=== PATIENT | female | born 1940 | race Caucasian/White ===

== ENCOUNTER → 2018-10-21 | Outpatient (REF) | payer MEDICARE ==
[~2018-10-21] MED LIST: ADVAIR DISKU IN; CEPHALEXIN500 MG PO; ECOTRIN325 MG OR; ENOXAPARIN40 MG/0.1 SC; HYDROCHLOROTHIA50 MG PO; HYDROCODONE/ACE1 TA7 PO; LANTANOPROST OU; LORAZEPAM0.5 MG PO; LUMIGAN0.01 % OP; METOPROLOL TART50 MG OR; MILK OF MAG30 ML/UDC PO; NITROGLYCER0.4 M1 SL; POTASSIUM CHLOR8 MEQ PO; PROVENTIL HFA INH; SOMA350 MG PO; STOOL SOFTENER100 MG PO; TIMOLOL MALEAT OU; TRAMADOL HCL50 MG PO; TRUSOPT 2% OP
[2018-10-21 09:54] LABS: INTERNATIONAL NORMALIZED RATIO 3.1 RATIO (0.7-1.3); PROTHROMBIN TIME 32.6 SECONDS (9.0-12.5)
== END | disposition home or self-care (01) ==
LOC: LAB 08:32
PROVIDERS: ATTEND Internal Medicine Cardiovascular Disease
DX: I48.0 Paroxysmal atrial fibrillation (principal)

== ENCOUNTER → 2018-11-04 | Outpatient (REF) | payer MEDICARE ==
[2018-11-04 10:52] LABS: INTERNATIONAL NORMALIZED RATIO 2.1 RATIO (0.7-1.3); PROTHROMBIN TIME 22.1 SECONDS (9.0-12.5)
== END | disposition home or self-care (01) ==
LOC: LAB 09:10
PROVIDERS: ATTEND Internal Medicine Cardiovascular Disease
DX: I48.0 Paroxysmal atrial fibrillation (principal)

== ENCOUNTER 2022-03-04 16:07 | Observation (INO) | payer MEDICARE ==
[~2022-03-04] VITALS: Ht 154.9 cm; Wt 94.0 kg
[2022-03-04] VITALS (13 sets, daily range): BP systolic 151–216; BP diastolic 44–74
--- NOTE | 2022-03-04 16:09 | NUR ---
PT TO ROOM VIA WC
[2022-03-04] MEDS ORDERED: SPIRONO/HCTZ PO (16:34)
[2022-03-04] MEDS ORDERED: LYVISPAH10 MG PO (16:35)
[2022-03-04] MEDS ORDERED: WARFARIN SODIU2.5 M1 PO (16:35)
[2022-03-04] MEDS ORDERED: GABAPENTIN300 M2 PO (16:36)
[2022-03-04] MEDS ORDERED: ACID CONTROL MA20 MG PO (16:36)
[2022-03-04] MEDS ORDERED: ZETIA10 MG PO (16:37)
[2022-03-04] MEDS ORDERED: DIGOX250 MCG PO (16:38)
[2022-03-04] MEDS ORDERED: LASIX20 MG PO (16:38)
[2022-03-04 17:12] LABS: HEMATOCRIT 38.1 % (37.0-47.0); IMMATURE GRANULOCYTES 0.3 % (0.0-5.0); MEAN CORPUSCULAR HGB CONC 31.5 g/dL CAL (32.0-36.0); NEUT# 6.94 thou/uL (2.00-7.15); RED BLOOD COUNT 4.28 mill/uL (4.20-5.60); RED CELL DISTRI WIDTH 15.8 % (11.5-15.5)
[2022-03-04 17:31] LABS: ALBUMIN 3.7 g/dL (3.2-5.0); ALKALINE PHOSPHATASE 72 u/l (38-126); ANION GAP 9 (6-22 (CALC)); BILIRUBIN, TOTAL 0.6 mg/dL (0.0-1.4); BUN 15 mg/dL (8-23); BUN/CREATININE RATIO 20 (12-20 (CALC)); CARBON DIOXIDE 30 mmol/l (22-30); CHLORIDE 100 mmol/l (95-108); CREATININE 0.7 mg/dL (0.5-1.0); GFR FOR AFR.AMER. > 60 ML/MIN (>=60 (CALC)); GFR OTHER RACES > 60 ML/MIN (>=60 (CALC)); POTASSIUM 3.9 mmol/l (3.5-5.1); SGOT/AST 29 u/l (9-36); SODIUM 136 mmol/l (137-146); TOTAL PROTEIN 6.4 g/dL (6.3-8.2)
[2022-03-04 17:42] LABS: URINE BILIRUBIN - DIPSTICK NEGATIVE (NEGATIVE); URINE BLOOD DIPSTICK NEGATIVE (NEGATIVE); URINE COLOR YELLOW; URINE GLUCOSE - DIPSTICK NEGATIVE (NEGATIVE); URINE KETONE NEGATIVE (NEGATIVE); URINE LEUK ESTERASE NEGATIVE (NEGATIVE); URINE PROTEIN - DIPSTICK NEGATIVE (NEG-TRACE); URINE SPECIFIC GRAVITY 1.015; URINE UROBILINOGEN - DIPSTICK 0.2 E.U./dL (0.2)
[2022-03-04 17:43] LABS: URINE NITRITE - DIPSTICK NEGATIVE (Negative)
[2022-03-04 17:46] LABS: MYOGLOBIN 113 ng/mL (0 - 62)
[2022-03-04 18:38] LABS: DIGOXIN 1.2 ng/mL (0.8-2.0)
--- NOTE | 2022-03-04 19:00 | NUR ---
ASSUMED CARE OF PT. Reassessment of patient completed. No distress noted. FAMILY AT BS.
--- NOTE | 2022-03-04 19:10 | NUR ---
RPT GIVEN TO EMA FLORES, PT CARE RELINQUISHED AT THIS TIME
--- NOTE | 2022-03-04 20:00 | NUR ---
Reassessment of patient completed. No distress noted. FAMILY AT BS.
[2022-03-04 20:17] LABS: INTERNATIONAL NORMALIZED RATIO 3.5 RATIO (0.7-1.3)
--- NOTE | 2022-03-04 20:30 | NUR ---
PT TOOK 1900 MEDS
--- NOTE | 2022-03-04 20:40 | NUR ---
PT TOOK HOME PM MEDS WITH MD AUTHORIZATION. MEDS ON EMAR FOR 2100 NOT GIVEN.
--- NOTE | 2022-03-04 21:16 | NUR ---
ATTEMPTED TO CALL M//S WITH REPORT.
--- NOTE | 2022-03-04 22:00 | NUR ---
PT TRANSFERRED TO MED SURG. REPORT GIVEN TO GI
--- NOTE | 2022-03-04 23:00 | NUR ---
PATIENT ADMITTED FROM ER VIA STRETCHER WITH ER STAFF IN ATTENDANCE. PATIENT IS MAX ASSIST FROM STRETCHER TO THE BED. AMBULATE WITH WALKER AT HOME. PATIENT ADMITTED WITH CHF. PATIENT WITH LIMITED MOBILITY DUE TO CHRONIC PAIN AND FIBRAMYALGIA. MULTIPLE BACK SURGERIES. ALERT AND ORIENTEDX3. PATIENT BROUGHT TO THE ER BY FAMILY AND HAS ALREADY TAKEN HER HS MEDS. BLE SWELLING AND REDNESS NOTED. ELEVATED ON PILLOWS. TELE MONITOR IN PLACE[address] [facility] [address]. PUREWICK IN PLACE DRAINING PALE YELLOW URINE FOR ACCURATE I&O AND ALSO PATIENT WITH URINARY INCONT. LAST BM WAS THIS MORNING. SALINE LOCK TO RIGHT FOREARM INTACT. PATIENT STATES THAT SHE HAS FREQUENT FALLS AT HOME. LIVES WITH HER . PATIENT ORIENTED TO ROOM AND SURROUNDINGS. INSTRUCTED ON U SE OF NURSE CALL LIGHT SYSTEM AND TV REMOTE. SAFETY PRECAUTIONS REINFORCED. CALL LIGHT IN REACH. WILL CONT TO MONITOR.
[2022-03-05] VITALS (9 sets, daily range): BP systolic 135–165; BP diastolic 37–61
--- NOTE | 2022-03-05 00:44 | NUR ---
PATIENT ASSISTED OOB TO THE BSC TO VOID AND THEN ASSISTED BACK TO BED. PUREWICK APPLIED DUE TO URINE INCONT. NEW IV SITE STARTED TOP LEFT UPPER FOREARM-#22 WITH GOOD BLOOD RETURN. IVF NS PATENT AND INFUSING AT 80CC/HR. LAC SITE WAS D/C'ED WITH CATH INTACT. SAFETY PRECAUITONS REINFORCED. CALL LIGHT IN REACH. WILL CONT TO MONITOR.
--- NOTE | 2022-03-05 04:11 | NUR ---
ASSISTED PATIENT WITH REPOSITIONING IN BED. PUREWICK IN PLACE AND DRAINIONG CLEAR PALE YELLOW URINE. TELE MONITOR IN PLACE. SALINE LOCK TO LEFT FOREARM INTACT. SAFETY PRECAUTIONS REINFORCED. CALL LIGHT IN REACH. WILL CONT TO MONITOR.
[2022-03-05 04:47] LABS: HEMATOCRIT 39.5 % (37.0-47.0); HEMOGLOBIN 12.3 g/dl (12.0-16.0); MEAN CELL VOLUME 89.2 fL CALC (80.0-100.0); MEAN CORPUSCULAR HGB 27.8 pG CALC (26.0-32.0); MEAN CORPUSCULAR HGB CONC 31.1 g/dL CAL (32.0-36.0); RED BLOOD COUNT 4.43 mill/uL (4.20-5.60)
[2022-03-05 05:05] LABS: PROTHROMBIN TIME 24.5 SECONDS (9.0-12.5)
[2022-03-05 05:08] LABS: CREATININE 1.1 mg/dL (0.5-1.0); MAGNESIUM 1.9 mg/dL (1.6-2.3); POTASSIUM 3.3 mmol/l (3.5-5.1)
[2022-03-05 05:10] LABS: INTERNATIONAL NORMALIZED RATIO 2.5 RATIO (0.7-1.3)
--- NOTE | 2022-03-05 09:27 | NUR ---
AWAKE, ALERT, NO SIGNS OR SYMPTOMS OF DISTRESS NOTED OR VOICED.
--- NOTE | 2022-03-05 12:18 | NUR ---
RESTING IN CHAIR, NO SIGNS OR SYMPTOMS OF DISTRESS NOTED OR VOICED.
--- NOTE | 2022-03-05 16:04 | NUR ---
AWAKE, ALERT, UP IN CHAIR, NO SIGNS OR SYMPTOMS OF DISTRESS NOTED OR VOICED.
--- NOTE | 2022-03-05 19:25 | NUR ---
PATIENT SITTING UP IN CHAIR. NO DISTRESS NOTED. AOX3. C/O OF LEGS FEELING HOT. BLT LOWER EXTREMITY HOT TO TOUCH; RED COLORING. PATIENT STATES THIS HAS A CHRONIC PROBLEM. SKIN IS INTACT. DISCUSSED WITH PATIENT MEDICATION AVAILABLE. FALL PRECAUTIONS IN PLACE. CALL MANZO WITHIN REACH.
[2022-03-06] VITALS: BP 155/61
[2022-03-06 04:28] VITALS: BP 167/53
[2022-03-06 04:52] VITALS: BP 167/53
[2022-03-06 05:45] LABS: HEMATOCRIT 40.7 % (37.0-47.0); HEMOGLOBIN 12.9 g/dl (12.0-16.0); MEAN CELL VOLUME 88.1 fL CALC (80.0-100.0); MEAN CORPUSCULAR HGB 27.9 pG CALC (26.0-32.0); MEAN CORPUSCULAR HGB CONC 31.7 g/dL CAL (32.0-36.0); RED BLOOD COUNT 4.62 mill/uL (4.20-5.60)
[2022-03-06 06:07] LABS: ANION GAP 9 (6-22 (CALC)); BUN 19 mg/dL (8-23); BUN/CREATININE RATIO 24 (12-20 (CALC)); CARBON DIOXIDE 33 mmol/l (22-30); CHLORIDE 95 mmol/l (95-108); CREATININE 0.8 mg/dL (0.5-1.0); GFR FOR AFR.AMER. > 60 ML/MIN (>=60 (CALC)); GFR OTHER RACES > 60 ML/MIN (>=60 (CALC)); MAGNESIUM 1.7 mg/dL (1.6-2.3); POTASSIUM 3.2 mmol/l (3.5-5.1); SODIUM 134 mmol/l (137-146)
[2022-03-06 06:34] VITALS: BP 166/47
[2022-03-06 08:00] VITALS: BP 143/66
--- NOTE | 2022-03-06 08:19 | NUR ---
PT REPORT RECIEVED FROM [employer]ER [employer]ODUCTION MACHINE OPERATOR
--- NOTE | 2022-03-06 08:46 | NUR ---
PT RESTING IN LOW FOWLERS POSITION. A/OX3 ASSESSMENT AND VS COMPLETED. HEART RHYTHM NORMAL WITH TELE IN PLACE. RESPIRATIONS EVEN AND UNLABORED. BOWEL SOUNDS ACTIVE. IV NOTED TO RFA S.L FLUSHED. PT DENIES ADDITIONAL NEEDS ALL SAFETY PRECAUTIONS IN PLACE.
[2022-03-06 09:43] LABS: INTERNATIONAL NORMALIZED RATIO 1.8 RATIO (0.7-1.3); PROTHROMBIN TIME 18.2 SECONDS (9.0-12.5)
[2022-03-06 10:10] VITALS: BP 143/66
--- NOTE | 2022-03-06 11:26 | NUR ---
Pt resting in jaramillo position, she reported decrease ROM in LE and pain with some movements due to fibromyalgia and arthritis. She performed AROM to BLE in supine and sitting x 20 reps within tolerance. Rolling side to side with mod assist and bed rail use, she sleeps in recliner at home. Supine to sit with mod/max assist. Transfer to BS chair with supervision, sit to and from stand with supervision only. Gait with Rollator 2x 60' with supervision. Posture was very flexed with pt reported being PLOF for years, unable to stand stand erect because of her back. BP 143/60, HR 66 to 82, 02 sats 95-96%. Pt was wet and jluis area cleaned, brief on. Time spent with pt 55 min. A- Pt has difficulty with bed mobility but sleeps in recliner at home. No LOB noted with mobility skills. [facility] 15, HH P- Will follow per POC until D/C.
--- NOTE | 2022-03-06 11:57 | NUR ---
PT RESTING IN HIGH FOWLERS POSITION. PT WAITING TO BE DC. PT DENIES ADDITIONAL NEEDS ALL SAFETY PRECAUTIONS IN PLACE.
[2022-03-06] MEDS ORDERED: KEFLEX500 MG PO (12:20)
--- NOTE | 2022-03-06 12:49 | NUR ---
PT EDUCATED ON DC INSTRUCTIONS. PT VERBALLY STATED UNDERSTANDING. PT AWAITING FAMILY FOR TRANSPORTATION HOME. PT IV NOTED AND TELE MONITOR NOTED.
--- NOTE | 2022-03-06 14:36 | NUR ---
Discharge instructions given. Patient verbalizes understanding of same. Discharged in stable condition via Wheelchair to Home with staff. All belongings sent with pt. home health pt iv removed tele removed er informed.
== END 2022-03-06 14:36 ==
LOC: ED 16:07 → ED-I 20:05 → ED 20:54 → MS2 20:55
PROVIDERS: Emergency Medicine; ADMIT Hospitalist; ATTEND Hospitalist
DX: I11.0 Hypertensive heart disease with heart failure (principal); I50.9 Heart failure, unspecified; L03.115 Cellulitis of right lower limb; I48.91 Unspecified atrial fibrillation; I27.20 Pulmonary hypertension, unspecified; M79.7 Fibromyalgia; M62.838 Other muscle spasm; Z95.5 Presence of coronary angioplasty implant and graft; Z79.01 Long term (current) use of anticoagulants; Z95.828 Presence of other vascular implants and grafts; Z20.822 Contact with and (suspected) exposure to COVID-19

== ENCOUNTER 2022-12-26 08:51 | Emergency (ER) | payer MEDICARE ==
[~2022-12-26] VITALS: Ht 154.9 cm; Wt 77.1 kg
[~2022-12-26 08:51] MED LIST changes: +ACID CONTROL MA20 MG PO; +DIGOX250 MCG PO; +GABAPENTIN300 M2 PO; +KEFLEX500 MG PO; +LASIX20 MG PO; +LYVISPAH10 MG PO; +SPIRONO/HCTZ PO; +WARFARIN SODIU2.5 M1 PO; +ZETIA10 MG PO
[2022-12-26 11:44] VITALS: BP 167/67
== END 2022-12-26 11:45 | disposition home or self-care (01) ==
LOC: ED 08:51
DX: M16.11 Unilateral primary osteoarthritis, right hip (principal); I11.0 Hypertensive heart disease with heart failure; I50.9 Heart failure, unspecified; I27.20 Pulmonary hypertension, unspecified; I48.91 Unspecified atrial fibrillation; M79.7 Fibromyalgia; Z95.5 Presence of coronary angioplasty implant and graft

== ENCOUNTER 2023-03-23 16:39 | Emergency (ER) | payer MEDICARE ==
[~2023-03-23] VITALS: Ht 154.9 cm; Wt 74.8 kg
[2023-03-23 17:17] LABS: BASO% 0.1 % (0-3); EOS% 1.2 % (0-8); HEMATOCRIT 43.6 % (37.0-47.0); HEMOGLOBIN 13.9 g/dl (12.0-16.0); IMMATURE GRANULOCYTES 0.3 % (0.0-5.0); LYMPH% 18.6 % (15-41); MEAN CORPUSCULAR HGB 27.7 pG CALC (26.0-32.0); MEAN CORPUSCULAR HGB CONC 31.9 g/dL CAL (32.0-36.0); MONO% 9.6 % (2-13); NEUT# 9.63 thou/uL (2.00-7.15); NEUT% 70.2 % (42-76); RED BLOOD COUNT 5.01 mill/uL (4.20-5.60); RED CELL DISTRI WIDTH 13.2 % (11.5-15.5)
[2023-03-23 17:29] LABS: ALBUMIN 4.2 g/dL (3.2-5.0); ALKALINE PHOSPHATASE 75 u/l (38-126); ANION GAP 9 (6-22 (CALC)); BILIRUBIN, TOTAL 0.7 mg/dL (0.02-1.3); BUN 19 mg/dL (8-23); BUN/CREATININE RATIO 29 (12-20 (CALC)); CARBON DIOXIDE 33 mmol/l (22-30); CHLORIDE 96 mmol/l (95-108); CREATININE 0.6 mg/dL (0.5-1.0); GFR FOR AFR.AMER. > 60 ML/MIN (>=60 (CALC)); GFR OTHER RACES > 60 ML/MIN (>=60 (CALC)); POTASSIUM 3.3 mmol/l (3.5-5.1); SGOT/AST 37 u/l (9-36); SODIUM 134 mmol/l (137-146)
[2023-03-23 17:39] LABS: TOTAL PROTEIN 7.8 g/dL (6.3-8.2)
[2023-03-23 18:51] LABS: INTERNATIONAL NORMALIZED RATIO 1.8 RATIO (0.7-1.3); PROTHROMBIN TIME 17.7 SECONDS (9.0-12.5)
[2023-03-23 22:37] VITALS: BP 185/73
== END 2023-03-23 22:55 | disposition home or self-care (01) ==
LOC: ED 16:39
PROVIDERS: Family Medicine
DX: M54.2 Cervicalgia (principal); M25.512 Pain in left shoulder; I16.0 Hypertensive urgency; I11.0 Hypertensive heart disease with heart failure; I50.9 Heart failure, unspecified; I48.91 Unspecified atrial fibrillation; I27.20 Pulmonary hypertension, unspecified; M79.7 Fibromyalgia; Z95.5 Presence of coronary angioplasty implant and graft
CPT/HCPCS: Q9967

== ENCOUNTER 2024-05-21 23:16 | Emergency (ER) | payer MEDICARE ==
[~2024-05-21] VITALS: Ht 154.9 cm; Wt 85.0 kg
[2024-05-21 23:32] VITALS: BP 132/86
[2024-05-21] MEDS ORDERED: DILTIAZEM HCL 25 MG/5 ML SDV IV ONE (23:45)
[2024-05-21 23:58] VITALS: BP 149/79
[2024-05-22] VITALS (16 sets, daily range): BP systolic 97–157; BP diastolic 45–80
[2024-05-22 00:11] LABS: BASO% 0.1 % (0-3); EOS% 3.5 % (0-8); HEMATOCRIT 36.8 % (37.0-47.0); HEMOGLOBIN 11.8 g/dl (12.0-16.0); IMMATURE GRANULOCYTES 0.4 % (0.0-5.0); LYMPH% 28.3 % (15-41); MEAN CELL VOLUME 93.9 fL CALC (80.0-100.0); MEAN CORPUSCULAR HGB 30.1 pG CALC (26.0-32.0); MEAN CORPUSCULAR HGB CONC 32.1 g/dL CAL (32.0-36.0); MONO% 9.4 % (2-13); NEUT# 5.28 thou/uL (2.00-7.15); NEUT% 58.3 % (42-76); RED BLOOD COUNT 3.92 mill/uL (4.20-5.60); RED CELL DISTRI WIDTH 13.5 % (11.5-15.5)
[2024-05-22 00:26] LABS: ALBUMIN 4.1 g/dL (3.2-5.0); BILIRUBIN, TOTAL 0.3 mg/dL (0.02-1.3); CREATININE 0.9 mg/dL (0.5-1.0); POTASSIUM 3.6 mmol/l (3.5-5.1); TOTAL PROTEIN 6.9 g/dL (6.3-8.2)
[2024-05-22 00:29] LABS: INTERNATIONAL NORMALIZED RATIO 3.2 RATIO (0.7-1.3)
[2024-05-22 00:40] LABS: PROTHROMBIN TIME 28.6 SECONDS (9.0-12.5)
[2024-05-22] MEDS ORDERED: ASPIRIN 81 MG/TAB PO ONE (01:05)
[2024-05-22 01:32] LABS: URINE BILIRUBIN - DIPSTICK Negative (NEGATIVE); URINE BLOOD DIPSTICK Trace-intact (NEGATIVE); URINE COLOR Yellow; URINE GLUCOSE - DIPSTICK Negative (NEGATIVE); URINE KETONE Negative (NEGATIVE); URINE LEUK ESTERASE Negative (NEGATIVE); URINE NITRITE - DIPSTICK Negative (Negative); URINE PROTEIN - DIPSTICK Negative (NEG-TRACE); URINE UROBILINOGEN - DIPSTICK 0.2 E.U./dL (0.2)
[2024-05-22] MEDS ORDERED: ASPIRINCHW 81MG PO (03:11)
[2024-05-22] MEDS ORDERED: ISOSORBIDE DINI30 MG PO (03:15)
[2024-05-22] MEDS ORDERED: LOSARTAN POTASS25 MG PO (03:16)
[2024-05-22] MEDS ORDERED: NITRO-DUR0.4 MG/HR TD (03:17)
[2024-05-22] MEDS ORDERED: ACETAMINOPHEN 325 MG/TAB PO ONE (05:05)
== END 2024-05-22 06:36 | disposition short-term general hospital (02) ==
LOC: ED 23:16
PROVIDERS: Family Medicine
DX: I48.20 Chronic atrial fibrillation, unspecified (principal); R79.89 Other specified abnormal findings of blood chemistry; I11.0 Hypertensive heart disease with heart failure; I50.9 Heart failure, unspecified; I27.20 Pulmonary hypertension, unspecified; Z95.5 Presence of coronary angioplasty implant and graft; Z79.01 Long term (current) use of anticoagulants; I25.10 Atherosclerotic heart disease of native coronary artery without angina pectoris

== ENCOUNTER 2024-10-25 14:55 | Observation (INO) | payer MEDICARE ==
[~2024-10-25 14:55] MED LIST changes: +ASPIRINCHW 81MG PO; +ISOSORBIDE DINI30 MG PO; +LOSARTAN POTASS25 MG PO; +NITRO-DUR0.4 MG/HR TD
[2024-10-25] MEDS ORDERED: Polyethylene Glycol 3350 17 GM/PKT PO PRN (15:10)
[2024-10-25] MEDS ORDERED: ACETAMINOPHEN 325 MG/TAB PO PRN (15:10)
[2024-10-25] MEDS ORDERED: ALUM & MAG HYDROX-SIMETHICONE 30 ML PO PRN (15:15)
[2024-10-25] MEDS ORDERED: LORazepam 0.5 MG/TAB PO PRN (15:15)
[2024-10-25] MEDS ORDERED: ELIQUIS5 MG PO (15:20)
[2024-10-25] MEDS ORDERED: TIMOLOL 0.5% OU (15:22)
[2024-10-25] MEDS ORDERED: LATANOPROST0.005 % OU (15:24)
[2024-10-25] MEDS ORDERED: METOPROLOL TAR100 MG PO (15:25)
[2024-10-25] MEDS ORDERED: DORZOLAMIDE HCL2 % OU (15:27)
[2024-10-25] MEDS ORDERED: ASPIRIN ADULT L81 M2 PO (15:28)
[2024-10-25] MEDS ORDERED: [UNRECOGNIZED DRUG - OTHER] PO (15:29)
[2024-10-25] MEDS ORDERED: COZAAR50 MG PO (15:29)
[2024-10-25] MEDS ORDERED: EZETIMIBE10 MG PO (15:30)
[2024-10-25] MEDS ORDERED: amioDARONE HCl 450 MG in SODIUM CHLORIDE 250 ML IV PRN (15:30)
[2024-10-25] MEDS ORDERED: ISOSORBIDE MONO30 MG PO (15:31)
[2024-10-25] MEDS ORDERED: BACLOFEN10 MG PO (15:33)
[2024-10-25] MEDS ORDERED: FUROSEMIDE20 MG PO (15:33)
[2024-10-25] MEDS ORDERED: GABAPENTIN300 M3 PO (15:34)
[2024-10-25] MEDS ORDERED: METOPROLOL TARTRATE 50 MG/TAB PO SCH (21:00)
[2024-10-25] MEDS ORDERED: APIXABAN BASE 5 MG TAB PO SCH (21:00)
[2024-10-25] MEDS ORDERED: AMIODARONE 200 MG/TAB PO SCH (21:00)
[2024-10-25] MEDS ORDERED: GABAPENTIN 300 MG/CAP PO SCH (21:37)
[2024-10-25 23:01] VITALS: BP 150/64
[2024-10-26] VITALS (9 sets, daily range): BP systolic 109–188; BP diastolic 59–75
[2024-10-26 05:46] LABS: HEMATOCRIT 39.1 % (37.0-47.0); HEMOGLOBIN 12.3 g/dl (12.0-16.0); MEAN CELL VOLUME 90.5 fL CALC (80.0-100.0); MEAN CORPUSCULAR HGB 28.5 pG CALC (26.0-32.0); MEAN CORPUSCULAR HGB CONC 31.5 g/dL CAL (32.0-36.0); RED BLOOD COUNT 4.32 mill/uL (4.20-5.60); RED CELL DISTRI WIDTH 14.2 % (11.5-15.5)
[2024-10-26 06:06] LABS: ALBUMIN 3.7 g/dL (3.2-5.0); BILIRUBIN, TOTAL 0.8 mg/dL (0.02-1.3); CREATININE 0.7 mg/dL (0.5-1.0); MAGNESIUM 1.6 mg/dL (1.6-2.3); POTASSIUM 3.9 mmol/l (3.5-5.1); TOTAL PROTEIN 6.5 g/dL (6.3-8.2)
[2024-10-26] MEDS ORDERED: ISOSORBIDE MONONITRATE 30 MG TAB PO SCH (09:00)
[2024-10-26] MEDS ORDERED: LOSARTAN Potassium 50 MG/TAB PO SCH (09:00)
[2024-10-26] MEDS ORDERED: FUROSEMIDE 20 MG/TAB PO SCH (09:00)
[2024-10-26] MEDS ORDERED: ASPIRIN EC 81 MG/TAB PO SCH (09:00)
[2024-10-26] MEDS ORDERED: CORDARONE/200 MG/TAB PO (12:42)
== END 2024-10-26 14:30 | disposition home or self-care (01) ==
LOC: ICU 14:55
PROVIDERS: ADMIT Internal Medicine; ATTEND Internal Medicine
DX: I48.0 Paroxysmal atrial fibrillation (principal); I49.5 Sick sinus syndrome; I25.118 Atherosclerotic heart disease of native coronary artery with other forms of angina pectoris; I11.0 Hypertensive heart disease with heart failure; I50.32 Chronic diastolic (congestive) heart failure; E78.5 Hyperlipidemia, unspecified; J45.909 Unspecified asthma, uncomplicated; G62.9 Polyneuropathy, unspecified; Z95.0 Presence of cardiac pacemaker; Z79.01 Long term (current) use of anticoagulants; Z95.5 Presence of coronary angioplasty implant and graft; Z95.820 Peripheral vascular angioplasty status with implants and grafts
CPT/HCPCS: J0282